=== PATIENT | female | born 1960 | race Caucasian/White ===

== ENCOUNTER 2025-08-11 07:41 | Outpatient (CLI) | payer OTHER | END 2025-08-11 07:42 | disposition home or self-care (01) | LOC: ULT 07:41 | PROVIDERS: ATTEND Internal Medicine Gastroenterology | DX: K21.9 Gastro-esophageal reflux disease without esophagitis (principal); R19.4 Change in bowel habit; K82.8 Other specified diseases of gallbladder; K64.9 Unspecified hemorrhoids; K82.4 Cholesterolosis of gallbladder; Z86.0100 Personal history of colon polyps, unspecified | CPT/HCPCS: 76705 ==